=== PATIENT | male | born 1995 | race Caucasian/White ===

== ENCOUNTER 2023-04-07 20:47 | Emergency (ER) | payer OTHER ==
[2023-04-07] MEDS ORDERED: TETANUS & DIPHTHERIA TOX,ADULT 0.5 ML VIAL ONE (21:03)
[2023-04-07] MEDS ORDERED: DOXYCYCLINE 100 MG CAP PO ONE (21:03)
--- NOTE | 2023-04-07 21:48 | RAD REPORT ---
EXAM DESCRIPTION: RAD - Foot Right 3 View - 04/07/2023 9:31 pm CLINICAL HISTORY: r/o fb COMPARISON: No comparisons TECHNIQUE: Right foot, 3 views. FINDINGS: No fracture, dislocation or periosteal reaction. No air or foreign body in the soft tissues. No evidence of radiopaque foreign body. IMPRESSION: Negative right foot examination.
--- NOTE | 2023-04-07 22:20 | ER ---
Nurse's Notes [facility] Name: Higinio Abreu Age: 27 yrs Sex: Male : 1995 Arrival Date: 04/07/2023 Time: 20:47 Bed 13 Private MD: Diagnosis: Puncture wound without foreign body of foot Presentation: 04/07 20:51 Chief complaint: Patient states: I stepped on a catfish derrick about 30 minutes ago. kd3 It was in my right foot. I took it out and i felt flush and nauseous so i came in. Coronavirus screen: Vaccine status: Patient reports being unvaccinated. Ebola Screen: No symptoms or risks identified at this time. Initial Sepsis Screen: Does the patient meet any 2 criteria? No. Patient's initial sepsis screen is negative. Does the patient have a suspected source of infection? No. Patient's initial sepsis screen is negative. Risk Assessment: Do you want to hurt yourself or someone else? Patient reports no desire to harm self or others. Onset of symptoms was April 07, 2023. 20:51 Method Of Arrival: Ambulatory kd3 20:51 Acuity: NIC 4 kd3 Triage Assessment: 20:54 General: Appears uncomfortable, Behavior is calm, cooperative. Pain: Complains of pain kd3 in right foot. Historical: - Allergies: 20:54 No Known Allergies; kd3 - Immunization history:: Adult Immunizations up to date, Last tetanus immunization: < 10 years ago. - Social history:: Smoking status: Patient reports the use of cigarette tobacco products, smokes one-half pack cigarettes per day. Screenin:57 Abuse screen: Denies threats or abuse. Denies injuries from another. Nutritional ha1 screening: No deficits noted. Tuberculosis screening: No symptoms or risk factors identified. 21:00 [facility] ED Fall Risk Assessment (Adult) History of falling in the last 3 months, pf1 including since admission No falls in past 3 months (0 pts) Confusion or Disorientation No (0 pts) Intoxicated or Sedated No (0 pts) Impaired Gait No (0 pts) Mobility Assist Device Used No (0 pt) Altered Elimination No (0 pt) Score/Fall Risk Level 0 - 2 = Low Risk Oriented to surroundings, Maintained a safe environment, Educated pt \T\ family on fall prevention, incl call for assistance when getting out of bed, Assessed \T\ reinforced patient's understanding of fall precautions, Provided non-skid footwear, Hourly rounding (assess needs \T\ fall precautionary measures) done, Used ambulatory aids as needed (educated on \T\ assisted with), Used gait belt as appropriate. Assessment: 20:56 General: Appears comfortable, Behavior is calm, cooperative. Pain: Complains of pain in ha1 right foot Pain does not radiate. Pain currently is 3 out of 10 on a pain scale. Neuro: Level of Consciousness is awake, alert, obeys commands, Oriented to person, place, time, situation. Cardiovascular: Patient's skin is warm and dry. Respiratory: Airway is patent Respiratory effort is even, unlabored, Respiratory pattern is regular, symmetrical. GI: No signs and/or symptoms were reported involving the gastrointestinal system. : No signs and/or symptoms were reported regarding the genitourinary system. Derm: Skin is pink, warm \T\ dry. Musculoskeletal: Circulation, motion, and sensation intact. Range of motion: intact in all extremities, Reports pain in right foot. 21:50 Reassessment: Patient appears in no apparent distress at this time. Patient and/or pf1 family updated on plan of care and expected duration. Pain level reassessed. Patient is alert, oriented x 3, equal unlabored respirations, skin warm/dry/pink. Patient states symptoms have improved. Vital Signs: 20:51 Weight 92.99 kg; Height 5 ft. 9 in. ; kd3 20:55 BP 150 / 103; Pulse 91; Resp 18 S; Temp 98.1; Pulse Ox 97% on R/A; ha1 22:00 BP 128 / 88; Pulse 80; Resp 16; Pulse Ox 100% on R/A; Pain 2/10; pf1 20:51 Body Mass Index 30.27 (92.99 kg, 175.26 cm) kd3 22:00 Pain Scale: Adult pf1 ED Course: 20:48 Patient arrived in ED. ja2 20:49 [facility]C [facility] kb 20:49 Jerry Merrill MD is Attending Physician. kb 20:53 Cait Bales, JACKY is Primary Nurse. ha1 20:54 Triage completed. kd3 20:54 Arm band placed on right wrist. kd3 20:57 Patient has correct armband on for positive identification. Bed in low position. Call ha1 light in reach. Side rails up X 1. 21:32 Foot Right 3 View XRAY In Process Unspecified. EDMS 22:29 No provider procedures requiring assistance completed. Patient did not have IV access pf1 during this emergency room visit. Administered Medications: 21:01 Drug: Tetanus-Diphtheria Toxoid IM Adult 0.5 ml {Manufacturing Analyst: [employer]. Exp: ha1 04/04/2024. Lot #: [id number]. } Route: IM; Site: right deltoid; 22:00 Follow up: Response: No adverse reaction; Marked relief of symptoms pf1 21:02 Drug: Doxycycline PO 100 mg Route: PO; ha1 22:00 Follow up: Response: No adverse reaction pf1 Medication: 22:00 Vaccine Information Statement (VIS) provided today. Questions and/or concerns pf1 addressed. VIS edition date: May 31, 2021. Outcome: 22:19 Discharge ordered by . kb 22:31 Discharged to home ambulatory. pf1 22:31 Condition: improved 22:31 Discharge instructions given to patient, Instructed on discharge instructions, follow up and referral plans. Demonstrated understanding of instructions, follow-up care, medications, Prescriptions given X 1. 22:34 Patient left the ED. pf1 Signatures: Dispatcher [employer] EDMS Jessica Murillo, MANAGING SUPERVISOR-C MANAGING SUPERVISOR-Judy Gordon Kyli RN RN kd3 Cait Bales RN RN ha1 Mercedez Cazares RN RN pf1
--- NOTE | 2023-04-07 22:20 | EDPHYS ---
Physician Documentation [facility] Name: Higinio Abreu Age: 27 yrs Sex: Male : 1995 Arrival Date: 04/07/2023 Time: 20:47 Bed 13 Private MD: ED Physician Jerry Merrill HPI: 04/07 21:08 This 27 yrs old Male presents to ER via Ambulatory with complaints of Puncture Wound To kb Foot. 21:08 The patient presents with a puncture wound, catfish fin. The complaints affect the kb right foot. Context: the patient can fully bear weight, the patient is able to ambulate. Onset: The symptoms/episode began/occurred just prior to arrival. Modifying factors: The symptoms are alleviated by nothing, the symptoms are aggravated by nothing. Associated signs and symptoms: The patient has no apparent associated signs or symptoms. Severity of symptoms: At their worst the symptoms were moderate, in the emergency department the symptoms have improved. The patient has not experienced similar symptoms in the past. The patient has not recently seen a physician. pt reports he got a catfish fin stuck in bottom of right foot just fire [employer]. States he was able to get it out, but [facility]. Historical: - Allergies: 20:54 No Known Allergies; kd3 - Immunization history:: Adult Immunizations up to date, Last tetanus immunization: < 10 years ago. - Social history:: Smoking status: Patient reports the use of cigarette tobacco products, smokes one-half pack cigarettes per day. ROS: 21:06 Constitutional: Negative for fever, chills, and weight loss. kb 21:06 Skin: Positive for puncture, of the ball of right foot. 21:06 All other systems are negative. Exam: 21:06 Constitutional: This is a well developed, well nourished patient who is awake, alert, kb and in no acute distress. Head/Face: Normocephalic, atraumatic. ENT: Moist Mucous membranes Respiratory: Respirations even and unlabored. No increased work of breathing. Talking in full sentences MS/ Extremity: Pulses equal, no cyanosis. Neurovascular intact. Full, normal range of motion. Neuro: Awake and alert, GCS 15, oriented to person, place, time, and situation. Moves all extremities. Normal gait. 21:06 Skin: injury, puncture(s), that are superficial, of the ball of right foot. Vital Signs: 20:51 Weight 92.99 kg; Height 5 ft. 9 in. ; kd3 20:55 BP 150 / 103; Pulse 91; Resp 18 S; Temp 98.1; Pulse Ox 97% on R/A; ha1 22:00 BP 128 / 88; Pulse 80; Resp 16; Pulse Ox 100% on R/A; Pain 2/10; pf1 20:51 Body Mass Index 30.27 (92.99 kg, 175.26 cm) kd3 22:00 Pain Scale: Adult pf1 MDM: 20:52 Patient medically screened. kb 22:18 Differential diagnosis: foreign body, penetrating trauma. Data reviewed: vital signs, kb nurses notes. Counseling: I had a detailed discussion with the patient and/or guardian regarding: the historical points, exam findings, and any diagnostic results supporting the discharge/admit diagnosis, radiology results, the need for outpatient follow up, a family practitioner, to return to the emergency department if symptoms worsen or persist or if there are any questions or concerns that arise at home. 04/07 20:53 Order name: Foot Right 3 View XRAY; Complete Time: 22:08 kb Administered Medications: 21:01 Drug: Tetanus-Diphtheria Toxoid IM Adult 0.5 ml {Dispatcher Service Chief: [employer]. Exp: ha04/04/2024. Lot #: [id number]. } Route: IM; Site: right deltoid; 22:00 Follow up: Response: No adverse reaction; Marked relief of symptoms pf1 21:02 Drug: Doxycycline PO 100 mg Route: PO; ha1 22:00 Follow up: Response: No adverse reaction pf1 Disposition: 23:11 Co-signature as Attending Physician, Jerry Merrill MD I reviewed the patient's care rt provided by the Advanced Practice Provider and agree with the diagnosis and treatment plan. Disposition Summary: 04/07/23 22:19 Discharge Ordered Location: Home kb Condition: Stable kb Diagnosis - Puncture wound without foreign body of foot kb Followup: kb - With: Emergency Department - When: As needed - Reason: Worsening of condition Followup: kb - With: Private Physician - When: 2 - 3 days - Reason: Recheck today's complaints, Continuance of care, Re-evaluation by your physician Discharge Instructions: - Discharge Summary Sheet kb - Puncture Wound, [id number] kb Forms: - Medication Reconciliation Form kb - Thank You Letter kb - Antibiotic Education kb - Prescription Opioid Use kb Prescriptions: - Doxycycline Hyclate 100 mg Oral Tablet - take 1 tablet by ORAL route every 12 hours; 20 tablet; Refills: 0, Product kb Selection Permitted Signatures: Dispatcher [employer] EDCT Jessica Murillo FNP-C FNP-Ckb Doucette, Kyli, RN RN kd3 Cait Bales RN RN ha1 Jerry Merrill MD MD rt Mercedez Cazares RN pf1
[2023-04-07 22:59] VITALS: TEMP 98.1
[2023-04-07 23:00] VITALS: BP 128/88; O2SAT 100
== END 2023-04-07 22:34 | disposition home or self-care (01) ==
LOC: ER 20:47
DX: S91.331A Puncture wound without foreign body, right foot, initial encounter (principal); Z23 Encounter for immunization
CPT/HCPCS: 90471; 90714; 99284